=== PATIENT | female | born 2000 | race Caucasian/White ===

== ENCOUNTER 2022-05-21 22:37 | Emergency (ER) | payer SELFPAY ==
[~2022-05-21] VITALS: Ht 172.7 cm; Wt 61.3 kg
[2022-05-22 00:57] LABS: HEMATOCRIT 44.3 % (37.0-47.0); HEMOGLOBIN 15.1 g/dl (12.0-16.0); IMMATURE GRANULOCYTES 0.2 % (0.0-5.0); MEAN CELL VOLUME 93.5 fL CALC (80.0-100.0); MEAN CORPUSCULAR HGB 31.9 pG CALC (26.0-32.0); MEAN CORPUSCULAR HGB CONC 34.1 g/dL CAL (32.0-36.0); NEUT# 5.46 thou/uL (2.00-7.15); RED BLOOD COUNT 4.74 mill/uL (4.20-5.60); RED CELL DISTRI WIDTH 12.7 % (11.5-15.5)
[2022-05-22 01:27] LABS: ALKALINE PHOSPHATASE 91 u/l (38-126); AMYLASE 128 u/l (30-110); ANION GAP 17 (6-22 (CALC)); BUN 9 mg/dL (8-21); BUN/CREATININE RATIO 15 (12-20 (CALC)); CARBON DIOXIDE 23 mmol/l (22-30); CHLORIDE 105 mmol/l (95-108); CREATININE 0.6 mg/dL (0.5-1.0); GFR FOR AFR.AMER. > 60 ML/MIN (>=60 (CALC)); GFR OTHER RACES > 60 ML/MIN (>=60 (CALC)); LIPASE 68 u/l (23-300); POTASSIUM 3.9 mmol/l (3.5-5.1); SGOT/AST 29 u/l (14-36); SODIUM 141 mmol/l (137-146); TOTAL PROTEIN 7.9 g/dL (6.3-8.2)
[2022-05-22 01:51] LABS: URINE BLOOD DIPSTICK MODERATE (NEGATIVE); URINE COLOR YELLOW; URINE GLUCOSE - DIPSTICK NEGATIVE (NEGATIVE); URINE KETONE 15 mg/dL (NEGATIVE); URINE PH 6.5 (4.5-8.0); URINE PROTEIN - DIPSTICK 30 mg/dL (NEG-TRACE); URINE SPECIFIC GRAVITY 1.025
[2022-05-22 02:09] LABS: URINE BILIRUBIN - DIPSTICK SMALL (NEGATIVE); URINE NITRITE - DIPSTICK NEGATIVE (Negative)
[2022-05-22 02:10] LABS: URINE LEUK ESTERASE NEGATIVE (NEGATIVE)
[2022-05-22 02:11] LABS: URINE WBC 0-2 WBC/hpf (0-5)
[2022-05-22 02:12] LABS: URINE BACTERIA MODERATE hpf; URINE EPITHELIAL CELLS FEW EPI/hpf (0-FEW)
[2022-05-22 02:13] LABS: URINE CALCIUM OXALATE CRYSTALS MODERATE lpf; URINE YEAST FEW hpf
[2022-05-22] MEDS ORDERED: KEFLEX500 MG PO (02:39)
[2022-05-22 02:43] VITALS: BP 118/78
== END 2022-05-22 02:49 | disposition home or self-care (01) | DRG 690 ==
LOC: ED 22:37
PROVIDERS: Emergency Medicine
DX: N39.0 Urinary tract infection, site not specified (principal); Z20.822 Contact with and (suspected) exposure to COVID-19
CPT/HCPCS: Q9967